=== PATIENT | female | born 1935 | race Caucasian/White ===

== ENCOUNTER 2021-06-01 18:43 | Inpatient (IN) | payer MEDICARE, SELFPAY ==
[~2021-06-01] VITALS: Ht 154.9 cm; Wt 58.7 kg
[2021-06-01 18:43] VITALS: BP_SYST 151
--- NOTE | 2021-06-01 18:43 | NUR ---
Placed in room 03 . Placed on potline monitor, blood pressure machine and pulse oximeter. To gown for exam. Side rails up. Report given to CATHLEEN BARDALES
--- NOTE | 2021-06-01 19:24 | NUR ---
ER Dr. JACOBS at bedside examining patient.
--- NOTE | 2021-06-01 19:35 | NUR ---
PATIENT A/OX4. PATIENT LYING IN BED WITH EYES OPEN, CHEST RISE AND FALL SYMMETRICAL, NO C/O PAIN OR S/S OR DISTRESS. BED IN LOW AND LOCKED POSITION.
--- NOTE | 2021-06-01 19:54 | NUR ---
Patient ambulated to restroom with steady gait. Denies dizziness, lightheadedness. Patient returned to [facility] and placed on monitor.
[2021-06-01] MEDS ORDERED: NITROGLYCERIN 1 INCH (GM) OINT. TP ONE (20:00)
[2021-06-01] MEDS ORDERED: MORPHINE 4 MG INJ. 4 MG/ML VIAL IVP ONE (20:00)
[2021-06-01] MEDS ORDERED: ASPIRIN 325 MG TABLET PO ONE (20:00)
[2021-06-01 20:08] LABS: BASOPHILS # (AUTO) 0.1 K/uL (0.0-0.2); BASOPHILS % (AUTO) 0.9 % (0.0-2.0); EOSINOPHILS # (AUTO) 0.1 K/uL (0.0-0.4); EOSINOPHILS % (AUTO) 1.7 % (0.0-4.0); HEMATOCRIT 38.9 % (36-48); HEMOGLOBIN 12.9 g/dL (12.0-16.0); LYMPHOCYTES # (AUTO) 1.4 K/uL (1.0-5.5); LYMPHOCYTES % (AUTO) 22.3 % (20.5-51.5); MEAN CORPUSCULAR HEMOGLOBIN 29 pg (27-31); MEAN CORPUSCULAR HGB CONC 33 % (32-36); MEAN CORPUSCULAR VOLUME 86 fL (79.0-98.0); MONOCYTES # (AUTO) 0.5 K/uL (0.0-1.0); MONOCYTES % (AUTO) 7.7 % (1.7-9.3); NEUTROPHILS # (AUTO) 4.2 K/uL (1.8-7.7); NEUTROPHILS % (AUTO) 67.4 % (40.0-70.0); PLATELET COUNT (AUTO) 269 K/uL (130-430); RED BLOOD CELL COUNT(AUTO) 4.53 MIL/uL (4.2-6.2); RED CELL DISTRIBUTION WIDTH 14.1 % (9.0-15.0); WHITE BLOOD COUNT (AUTO) 6.2 K/uL (4.8-10.8)
[2021-06-01 20:20] LABS: ANION GAP 11 (5-15); CALCIUM 8.7 mg/dL (8.4-11.0); CHLORIDE 105 mmol/L (98-107); CREATININE 1.13 mg/dL (0.55-1.30); GLUCOSE 158 mg/dL (70-99); POTASSIUM 3.9 mmol/L (3.5-5.1); SODIUM SERUM 143 mmol/L (136-145); UREA NITROGEN, BLOOD 23 mg/dL (8-21)
[2021-06-01 20:28] LABS: ALANINE AMINOTRANSFERASE 20 U/L (12-78); ALBUMIN 3.2 g/dL (3.4-4.8); ASPARTATE AMINOTRANSFERASE 19 U/L (10-37); TOTAL BILIRUBIN 0.3 mg/dL (0.0-1.0)
--- NOTE | 2021-06-01 20:28 | NUR ---
PATIENT REFUSING SALINE LOCK AND MORPHINE. PATIENT STATES IV'S ARE PAINFUL AND I WOULD LIKE A SHOT. PATIENT ALSO REPORTS MORPHINE DOES NOT WORK FOR HER. NOTIFIED.
--- NOTE | 2021-06-01 20:30 | NUR ---
Patient verbalized stated, "The aspirin helped bring down the pain." Patient stated pain is currently 0/10.
--- NOTE | 2021-06-01 20:48 | NUR ---
PATIENT STATES SHE IS FULL CODE
--- NOTE | 2021-06-01 21:03 | NUR ---
# 22 gauge angiocath placed to LEFT HAND. Use of asceptic technique. Opsite placed over site. Blood return noted. Flushed with 10 cc of normal saline. No evidence of infiltration noted. Patient tolerated well.
[2021-06-01] MEDS ORDERED: NITROGLYCERIN 0.4 MG TAB.SUBL SL PRN (23:45)
[2021-06-01] MEDS ORDERED: cloNIDine HCL 0.1 MG TABLET PO PRN (23:45)
[2021-06-01] MEDS ORDERED: PANTOPRAZOLE SODIUM 40 MG TAB PO ONE (23:45)
[2021-06-02] MEDS ORDERED: CHOL100062 (00:09)
[2021-06-02] MEDS ORDERED: AMLO2.5T2 PO (00:09)
[2021-06-02] MEDS ORDERED: OMEG300C3 (00:09)
[2021-06-02] MEDS ORDERED: CYAN250010 (00:09)
[2021-06-02] MEDS ORDERED: LEVO75CA5 PO (00:09)
[2021-06-02] MEDS ORDERED: ALPR0.25 PO (00:09)
[2021-06-02] MEDS ORDERED: BETA1TAB20 PO (00:09)
[2021-06-02] MEDS ORDERED: ATEN-167 PO (00:09)
--- NOTE | 2021-06-02 00:09 | NUR ---
Medication reconciliation completed with information provided by PATIENT. Any prior medication reconciliation on file was reviewed and corrected.
--- NOTE | 2021-06-02 02:40 | NUR ---
Transfer to TELEMETRY via ACLS protocol. Licensed nurse present. IV present no signs or symptoms of infiltration.
--- NOTE | 2021-06-02 02:50 | NUR ---
ADMISSION NOTE Received patient from ER via gurney. Patient admitted with diagnosis of CHEST PAIN. Patient is awake, alert, oriented X 4. Patient oriented to hospital room, call light, toileting, pain management and safety-teach back done. Patient informed that their room number is 105A. Personal belongings checked and Belongings List documented. Call light within reach.
[2021-06-02 02:58] VITALS: BP_SYST 159
--- NOTE | 2021-06-02 05:30 | NUR ---
CONSULTATION PAGED/CALLED Reason for Consultation: CP Person Who was Notified: ZAIDA Consulting Physician: BRYANNA Slurry Plant Operator Specialty: Ordering Physician: SHANICE
[2021-06-02 07:06] LABS: BASOPHILS % (AUTO) 0.6 % (0.0-2.0); EOSINOPHILS # (AUTO) 0.2 K/uL (0.0-0.4); EOSINOPHILS % (AUTO) 2.4 % (0.0-4.0); HEMATOCRIT 37.7 % (36-48); HEMOGLOBIN 12.6 g/dL (12.0-16.0); LYMPHOCYTES # (AUTO) 1.6 K/uL (1.0-5.5); LYMPHOCYTES % (AUTO) 23.3 % (20.5-51.5); MEAN CORPUSCULAR HEMOGLOBIN 29 pg (27-31); MEAN CORPUSCULAR HGB CONC 34 % (32-36); MEAN CORPUSCULAR VOLUME 85 fL (79.0-98.0); MONOCYTES # (AUTO) 0.5 K/uL (0.0-1.0); MONOCYTES % (AUTO) 7.5 % (1.7-9.3); NEUTROPHILS # (AUTO) 4.4 K/uL (1.8-7.7); NEUTROPHILS % (AUTO) 66.2 % (40.0-70.0); PLATELET COUNT (AUTO) 245 K/uL (130-430); RED BLOOD CELL COUNT(AUTO) 4.42 MIL/uL (4.2-6.2); RED CELL DISTRIBUTION WIDTH 14.3 % (9.0-15.0); WHITE BLOOD COUNT (AUTO) 6.7 K/uL (4.8-10.8)
--- NOTE | 2021-06-02 08:00 | NUR ---
NOTES PATIENT AAOX 4. VITALS SIGNS STABLE. AFEBRILE. AMBULATES TO THE BATHROOM. NO S/S OF DISTRESS NOTED. HAS IV ACCESS ON THE RT HAND #22. SALINE LOCKED. PATENT/DRY. NO SKIN BREAKDOWN NOTED. CALL LIGHTS WITHIN REACH. BED LOW POSITION, ALARMED AND LOCKED. WILL CONTINUE TO MONITOR
[2021-06-02 08:21] VITALS: BP_SYST 152
[2021-06-02 08:22] LABS: ALANINE AMINOTRANSFERASE 24 U/L (12-78); ALBUMIN 3.1 g/dL (3.4-4.8); ANION GAP 5 (5-15); ASPARTATE AMINOTRANSFERASE 15 U/L (10-37); CALCIUM 8.7 mg/dL (8.4-11.0); CHLORIDE 106 mmol/L (98-107); CREATININE 0.95 mg/dL (0.55-1.30); GLUCOSE 125 mg/dL (70-99); POTASSIUM 3.7 mmol/L (3.5-5.1); SODIUM SERUM 141 mmol/L (136-145); TOTAL BILIRUBIN 0.4 mg/dL (0.0-1.0); UREA NITROGEN, BLOOD 21 mg/dL (8-21)
--- NOTE | 2021-06-02 08:25 | NUR ---
DR GOULD CAME AND EVALUATE THE PATIENT. INFORMED REGARDING XANAX PO AND TYLENOL FOR HEADACHE.
[2021-06-02] MEDS ORDERED: ACETAMINOPHEN 325 MG TABLET PO PRN (08:30)
[2021-06-02] MEDS ORDERED: ALPRAZolam 0.25 MG TABLET PO ONE (08:30)
[2021-06-02] MEDS ORDERED: PANTOPRAZOLE SODIUM 40 MG TAB PO SCH (09:00)
[2021-06-02] MEDS ORDERED: amLODIPine BESYLATE 5 MG TABLET PO SCH (09:00)
[2021-06-02] MEDS ORDERED: LEVOTHYROXINE SODIUM 0.075 MG TABLET PO SCH (09:00)
[2021-06-02] MEDS ORDERED: ASPIRIN 81 MG TABLET(ECOTRIN) PO SCH (09:00)
--- NOTE | 2021-06-02 09:00 | NUR ---
DUE MEDS GIVEN TO THE PATIENT.
--- NOTE | 2021-06-02 10:16 | NUR ---
2 D ECHO DOING AT THE BEDSIDE.
[2021-06-02 10:53] LABS: CHOLESTEROL 240 mg/dL (<200); HDL CHOLESTEROL 49 mg/dL (>55); LDL CHOLESTEROL 158 mg/dL (<100); TRIGLYCERIDES 150 mg/dL (30-150)
[2021-06-02 11:46] VITALS: BP_SYST 152
[2021-06-02] MEDS ORDERED: NITSL SL (16:21)
[2021-06-02 16:46] VITALS: BP_SYST 140
[2021-06-02 17:17] VITALS: BP_SYST 140
--- NOTE | 2021-06-02 17:50 | NUR ---
DISCHARGE INSTRUCTION GIVEN TO THE PATIENT AND LAND MANAGEMENT SUPERVISOR BY THE SON. PATIENT LEFT IN STABLE CONDITION. INSTRUCTED ON MEDICATION TO FOLLOW UP AND CONTINUE SAME MEDICATION PREVIOUSLY TAKEN. VERBALIZED HAD NITROGLYCERIN SL AT HOME. IN CASE OF CHEST PAIN. AND INSTRUCTED TO FOLLOW UP FOR THE PRIMARY CARE DOCTOR AND HELPDESK ANALYST IN ONE WEEK. SHE VERBALIZED SHE UNDERSTAND THE INSTRUCTIONS.
[2021-06-02] MEDS ORDERED: ATENOLOL 50 MG TABLET (TENORMIN) PO SCH (21:00)
[2021-06-02] MEDS ORDERED: ALPRAZolam 0.25 MG TABLET PO SCH (21:00)
== END 2021-06-02 17:50 | disposition home or self-care (01) | DRG 313 ==
LOC: SED 18:43 → STU 22:49
PROVIDERS: ADMIT Internal Medicine; ATTEND Internal Medicine
DX: R07.89 Other chest pain (principal); I10 Essential (primary) hypertension; E03.9 Hypothyroidism, unspecified; E66.9 Obesity, unspecified; F41.9 Anxiety disorder, unspecified; I44.7 Left bundle-branch block, unspecified; Z20.822 Contact with and (suspected) exposure to COVID-19; E78.5 Hyperlipidemia, unspecified; Z79.899 Other long term (current) drug therapy; Z85.3 Personal history of malignant neoplasm of breast; Z87.891 Personal history of nicotine dependence; Z90.11 Acquired absence of right breast and nipple; Z85.42 Personal history of malignant neoplasm of other parts of uterus; Z92.21 Personal history of antineoplastic chemotherapy; Z85.51 Personal history of malignant neoplasm of bladder; Z82.49 Family history of ischemic heart disease and other diseases of the circulatory system; Z82.3 Family history of stroke; Z88.8 Allergy status to other drugs, medicaments and biological substances; Z88.2 Allergy status to sulfonamides; Z68.24 Body mass index [BMI] 24.0-24.9, adult
CPT/HCPCS: 36415; 71045; 80053; 80061; 84484; 85025; 93005; 93306; 99291; G0378

== ENCOUNTER 2021-09-17 07:02 | Emergency (ER) | payer MEDICARE ==
[~2021-09-17] VITALS: Ht 162.6 cm; Wt 61.2 kg
[~2021-09-17 07:02] MED LIST: ALPR0.25 PO; AMLO2.5T2 PO; ATEN-167 PO; BETA1TAB20 PO; CHOL100062; CYAN250010; LEVO75CA5 PO; NITSL SL; OMEG300C3
[2021-09-17 07:24] VITALS: BP_SYST 158
[2021-09-17 07:52] LABS: BASOPHILS % (AUTO) 0.6 % (0.0-2.0); EOSINOPHILS # (AUTO) 0.2 K/uL (0.0-0.4); EOSINOPHILS % (AUTO) 3.1 % (0.0-4.0); HEMOGLOBIN 13.1 g/dL (12.0-16.0); LYMPHOCYTES # (AUTO) 1.6 K/uL (1.0-5.5); LYMPHOCYTES % (AUTO) 29.3 % (20.5-51.5); MEAN CORPUSCULAR HEMOGLOBIN 29 pg (27-31); MEAN CORPUSCULAR HGB CONC 34 % (32-36); MEAN CORPUSCULAR VOLUME 85 fL (79.0-98.0); MONOCYTES # (AUTO) 0.4 K/uL (0.0-1.0); MONOCYTES % (AUTO) 7.7 % (1.7-9.3); NEUTROPHILS # (AUTO) 3.2 K/uL (1.8-7.7); NEUTROPHILS % (AUTO) 59.3 % (40.0-70.0); PLATELET COUNT (AUTO) 228 K/uL (130-430); RED BLOOD CELL COUNT(AUTO) 4.57 MIL/uL (4.2-6.2); RED CELL DISTRIBUTION WIDTH 13.9 % (9.0-15.0); WHITE BLOOD COUNT (AUTO) 5.4 K/uL (4.8-10.8)
[2021-09-17 08:10] LABS: ALANINE AMINOTRANSFERASE 30 U/L (12-78); ALBUMIN 2.9 g/dL (3.4-4.8); ASPARTATE AMINOTRANSFERASE 22 U/L (10-37); CALCIUM 8.3 mg/dL (8.4-11.0); GLUCOSE 112 mg/dL (70-99); TOTAL BILIRUBIN 0.4 mg/dL (0.0-1.0); UREA NITROGEN, BLOOD 19 mg/dL (8-21)
[2021-09-17 08:15] LABS: ANION GAP 8 (5-15); CHLORIDE 107 mmol/L (98-107); POTASSIUM 3.8 mmol/L (3.5-5.1); SODIUM SERUM 144 mmol/L (136-145)
[2021-09-17 10:46] VITALS: BP_SYST 158
== END 2021-09-17 12:06 | disposition home or self-care (01) ==
LOC: SED 07:02
DX: I16.0 Hypertensive urgency (principal); Z88.2 Allergy status to sulfonamides; Z88.8 Allergy status to other drugs, medicaments and biological substances
CPT/HCPCS: 36415; 71045; 80053; 83880; 84484; 85025; 93005; 99285